=== PATIENT | female | born 1995 | race Hispanic/Latino ===

== ENCOUNTER 2017-02-06 20:24 | Emergency (ER) | payer MEDICAID ==
[2017-02-06] MEDS ORDERED: Metoclopramide HCl 10 MG TAB ONE (21:03)
[2017-02-06] MEDS ORDERED: Acetaminophen 500 MG TAB ONE (21:03)
[2017-02-06] MEDS ORDERED: diphenhydrAMINE 25 MG CAP ONE (21:03)
== END 2017-02-06 22:47 | disposition home or self-care (01) ==
LOC: SCSER 20:24
DX: O99.352 Diseases of the nervous system complicating pregnancy, second trimester (principal); G43.909 Migraine, unspecified, not intractable, without status migrainosus; O99.512 Diseases of the respiratory system complicating pregnancy, second trimester; J45.909 Unspecified asthma, uncomplicated; O99.342 Other mental disorders complicating pregnancy, second trimester; F41.9 Anxiety disorder, unspecified; F32.9 Major depressive disorder, single episode, unspecified; Z3A.16 16 weeks gestation of pregnancy
CPT/HCPCS: 99283

== ENCOUNTER 2024-01-01 03:11 | Emergency (ER) | payer OTHER ==
[2024-01-01] MEDS ORDERED: predniSONE 20 MG TAB ONE (03:28)
== END 2024-01-01 03:39 | disposition home or self-care (01) ==
LOC: ERS 03:11
DX: J30.9 Allergic rhinitis, unspecified (principal)
CPT/HCPCS: 99282; J7512

== ENCOUNTER 2024-02-18 07:08 | Emergency (ER) | payer OTHER, SELFPAY ==
[2024-02-18 08:06] LABS: Pregnancy Test - Urine (BHCG) Negative (Negative); Pregu Control Bar Appear? YES (CONTROL BAR)
[2024-02-18 08:07] LABS: Bacteria/HPF None Seen HPF (None Seen); Bilirubin Negative (Negative); Blood, Urine Negative (Negative); CAUTI Indications for Culture Dysuria,urgency,freq; Clarity Clear (Clear); Glucose, Urine (Dipstick) Normal (Negative); Ketone, Urine Negative (Negative); Leukocyte Negative Leu/uL (Negative); Nitrite Negative (Negative); Pregu Control Background? CLEAR/WHITE (CLR/WHITE); Protein, Urine (Dipstick) Negative (Neg-Trace); RBC/HPF 0-3 HPF (0-3); Specific Gravity, Urine 1.018 (1.002-1.036); Squamous Epithelial 0-3 HPF (0-3); Urobilinogen Normal mg/dL (Less than 2); WBC/HPF 0-3 HPF (0-3)
[2024-02-18 08:08] LABS: Specific Gravity 1.018 (1.002-1.036)
[2024-02-18 08:09] LABS: Urine Culture Reflex No No
== END 2024-02-18 10:40 | disposition home or self-care (01) ==
LOC: ERS 07:08
DX: G43.909 Migraine, unspecified, not intractable, without status migrainosus (principal); L20.9 Atopic dermatitis, unspecified
CPT/HCPCS: 81001; 81025; 87428; 96374; 96375

== ENCOUNTER 2024-02-18 22:29 | Emergency (ER) | payer SELFPAY ==
[2024-02-18 23:31] LABS: #Basophils Less than 0.03 10x3/uL (0.0-0.2); #Eosinophils Less than 0.03 10x3/uL (0.0-0.7); %Basophils 0.1 % (0.0-1.0); %Lymphocytes 6.1 % (21.0-51.0); %Monocytes 2.9 % (0.0-10.0); %Neutrophils 90.3 % (42.0-75.0); Hematocrit 40.4 % (36.0-47.0); Hemoglobin 13.9 g/dL (12.0-16.0); Mean Corpuscular HGB CONC 34.4 g/dL (32.0-36.0); Mean Corpuscular Hemoglobin 31.7 pg (27.0-31.0); Mean Corpuscular Volume 92.2 fL (78.0-98.0); Mean Platelet Volume 9.5 fL (7.4-10.4); Platelet Count 225 10x3/uL (130-400); RBC Distribution Width 11.8 % (11.5-14.5); Red Blood Cell (RBC) Count 4.38 mill/uL (4.20-5.40)
[2024-02-18 23:59] LABS: ALT (SGPT) 41 U/L (8-55); AST (SGOT) 36 U/L (5-34); Albumin 4.1 g/dL (3.5-5.0); Alkaline Phosphatase 74 U/L (40-110); Anion Gap 16 mmol/L (10-20); BUN (Urea Nitrogen) 9 mg/dL (7.0-18.7); Bilirubin, Total 0.7 mg/dL (0.2-1.2); Calc. Creatinine Clearance 0 mL/min (70-130); Calcium 8.9 mg/dL (7.8-10.44); Carbon Dioxide 20 mmol/L (22-29); Chloride 107 mmol/L (98-107); Estimated GFR 116; Globulin 3.2 g/dL (2.4-3.5); Glucose 137 mg/dL (70-105); Potassium 3.9 mmol/L (3.5-5.1); Protein, Total 7.3 g/dL (6.0-8.3); Sodium 139 mmol/L (136-145); Troponin I Less than 0.010 ng/mL (< 0.028)
== END 2024-02-19 00:19 | disposition home or self-care (01) ==
LOC: ERS 22:29
DX: R07.89 Other chest pain (principal); F17.290 Nicotine dependence, other tobacco product, uncomplicated
CPT/HCPCS: 36415; 71045; 80053; 84484; 85025; 93005